=== PATIENT | female | born 1970 | race Caucasian/White ===

== ENCOUNTER 2025-08-06 08:17 | Outpatient (CLI) | payer OTHER, SELFPAY | END 2025-08-06 08:18 | disposition home or self-care (01) | LOC: NFLDREF 20:38 | PROVIDERS: PCP Family Medicine; Referring Provider Family Medicine; Visit Provider Physician Assistant | DX: F52.0 Hypoactive sexual desire disorder (principal); N95.1 Menopausal and female climacteric states; Z13.6 Encounter for screening for cardiovascular disorders; Z13.1 Encounter for screening for diabetes mellitus | CPT/HCPCS: 80061; 82947; 84270; 84402; 84403; 84443 ==